=== PATIENT | male | born 1990 | race Two or more races ===

== ENCOUNTER 2020-05-24 00:45 | Emergency (ER) | payer SELFPAY ==
[2020-05-24 01:32] LABS: ABSOLUTE BASOPHILS # (AUTO) 0.1 10^3/uL (0.0-0.2); ABSOLUTE MONOCYTES (AUTO) 0.8 10^3/uL (0.1-1.4); ABSOLUTE NEUT (AUTO) 13.3 10^3/uL (1.7-8.2); BASOPHILS % (AUTO) 0.5 % (0-2); HEMATOCRIT 39.7 % (37.9-51.0); HEMOGLOBIN 13.7 g/dL (13.5-17.0); LYMPHOCYTES % (AUTO) 6.6 % (13-45); MEAN CORPUSCULAR HEMOGLOBIN 25.7 pg (27.0-33.4); MEAN CORPUSCULAR HGB CONC 34.6 g/dL (32.0-36.0); MEAN CORPUSCULAR VOLUME 74 fl (80-97); MONOCYTES % (AUTO) 5.4 % (3-13); PLATELET COUNT 449 10^3/uL (150-450); RED BLOOD COUNT 5.34 10^6/uL (4.35-5.55); RED CELL DISTRIBUTION WIDTH 14.6 % (11.5-14.0); SEGMENTED NEUTROPHILS % (AUTO) 87.5 % (42-78); TOTAL CELLS COUNTED % (AUTO) 100 %; WHITE BLOOD COUNT 15.2 10^3/uL (4.0-10.5)
[2020-05-24 01:35] LABS: ALBUMIN 5.3 g/dL (3.5-5.0); ALKALINE PHOSPHATASE 129 U/L (38-126); ANION GAP 13 (5-19); ASPARTATE AMINO TRANSFERASE 26 U/L (17-59); BILIRUBIN,DIRECT 0.3 mg/dL (0.0-0.4); BILIRUBIN,TOTAL 0.7 mg/dL (0.2-1.3); BLOOD UREA NITROGEN 15 mg/dL (7-20); CALCIUM 10.3 mg/dL (8.4-10.2); CARBON DIOXIDE 39 mmol/L (22-30); CHLORIDE 94 mmol/L (98-107); GLUCOSE 144 mg/dL (75-110)
[2020-05-24 01:56] LABS: POTASSIUM 2.8 mmol/L (3.6-5.0)
[2020-05-24] MEDS ORDERED: POTASSIUM CHLORIDE 10 MEQ TABLET.ER PO ONE (02:13)
[2020-05-24] MEDS ORDERED: ONDANSETRON HCL INJ/PF 4 MG/2 ML SDV IV ONE (02:14)
[2020-05-24] MEDS ORDERED: MAGNESIUM SULFATE/D5W 1 GM/100 ML RTUPB IV ONE (02:14)
--- NOTE | 2020-05-24 05:29 | ER Document Report ---
ED General <MELECIO GONZALEZ - Last Filed: 05/24/20 08:48> <MG CAMPBELL - Last Filed: 05/24/20 16:36> - General Chief Complaint: Nausea/Vomiting Stated Complaint: NAUSEA,VOMITING,ABDOMINAL PAIN Time Seen by Provider: 05/24/20 01:30 Primary Care Provider: [facility] [Outside] - Follow up as needed [facility] [Outside] - Follow up as needed FAMILIA COPELAND MD [COMMUNITY BASED STAFF] - Follow up as needed YESENIA MENDOZA MD [ACTIVE STAFF] - Follow up as needed - HPI Notes: Patient is a 29-year-old male who presents with nausea, and vomiting that began yesterday afternoon. Patient is visiting his from [facility]. He state he is coming off heroin and last used one day ago. He also left his xanax and percocet at home. He currently take xanax for anxiety and percocet for a neck fracture that occurred two months ago. Patient reports myalgia and dizziness. He denies chest pain, shortness of breath and fever. (CARLOSFERNANDOMELECIO M) - Related Data Allergies/Adverse Reactions: No Known Drug Allergies Allergy (Verified 05/24/20 04:21) Past Medical History - General Information source: Patient - Social History Smoking Status: Current Every Day Smoker Chew tobacco use (# tins/day): No Frequency of alcohol use: None Drug Abuse: Heroin, Prescription drugs <MELECIO GONZALEZ - Last Filed: 05/24/20 08:48> - General Information source: Patient - Social History Family History: Reviewed & Not Pertinent <MG CAMPBELL - Last Filed: 05/24/20 16:36> Review of Systems - Review of Systems Constitutional: No symptoms reported EENT: No symptoms reported Cardiovascular: No symptoms reported Respiratory: No symptoms reported Gastrointestinal: See HPI Genitourinary: No symptoms reported Male Genitourinary: No symptoms reported Musculoskeletal: No symptoms reported Skin: No symptoms reported Hematologic/Lymphatic: No symptoms reported Neurological/Psychological: See HPI <MELECIO GONZALEZ - Last Filed: 05/24/20 08:48> Physical Exam <MELECIO GONZALEZ - Last Filed: 05/24/20 08:48> - Vital signs Vitals: Temp 98.8 F 05/24/20 00:46 - Notes Notes: PHYSICAL EXAMINATION: VITALS: Vitals reviewed and within normal limits. GENERAL: Ill-appearing and diaphoretic. . HEAD: Atraumatic, normocephalic. EYES: Pupils equal, round, and reactive to light, extraocular movements intact, sclera anicteric, conjunctiva are normal. ENT: Nares patent. Moist mucous membranes. Oropharynx clear without exudates. NECK: Normal range of motion, supple without lymphadenopathy. LUNGS: Breath sounds clear to auscultation bilaterally and equal. No wheezes, rales, or rhonchi. HEART: Regular, rate, and rhythm without murmurs. ABDOMEN: Soft, nontender, normoactive bowel sounds. No guarding, no rebound. No masses appreciated. EXTREMITIES: Normal range of motion, no pitting or edema. No cyanosis. NEUROLOGICAL: No focal neurological deficits. Moves all extremities spontaneously and on command. PSYCH: Normal mood, normal affect. SKIN: Warm, Dry, normal turgor, no rashes or lesions noted. (MELECIO GONZALEZ) Course - Laboratory Results Result Diagrams: 05/24/20 01:10 05/24/20 01:10 Critical Laboratory Results Reviewed: Yes Attending or Supervising Physician who Reviewed Labs: LISA LEROY - Radiology Results Critical Radiology Results Reviewed: No Critical Results <MELECIO GONZALEZ - Last Filed: 05/24/20 08:48> - Laboratory Results Result Diagrams: 05/24/20 10:44 05/24/20 10:44 Critical Laboratory Results Reviewed: Yes <MG CAMPBELL - Last Filed: 05/24/20 16:36> - Re-evaluation Re-evalutation: Patient is a 29-year-old male who presents with nausea and vomiting. He reports coming off of heroin and last used 1 day ago. He also typically takes Xanax and Percocet daily but forgot them back in [place]. On exam, patient is diaphoretic but abdomen is soft and nontender. Based on patient's symptoms and presentation, I have a high clinical suspicion of withdrawal. CBC shows elevated WBC of 15.2. CMP shows low potassium of 2.8. 40 mEq KCl PO ordered. Lipase normal at 53.5. EKG shows prolonged QTC of 565. Will withhold any further Zofran or other medications that prolong QT. IM Phenergan ordered for nausea. 05/24/20 05:15 Informed by Aspen Johnson RN that patient was unable to tolerate PO KCl due to nausea and he refused to take it. Ordered KCl IV 40mEq. 05/24/20 07:37 I spoke with my supervising physician, Dr. Pfeiffer, concerning this patient. He agrees with my suspicions of withdrawal. He recommends proceeding with the potassium repletion and then discharging the patient with substance abuse resources. 05/24/20 08:00 patient handoff given to Mg Campbell NP. (MELECIO GONZALEZ) 05/24/20 15:19 CBC shows a leukocytosis of 15.2, CMP does show potassium 2.8, patient did receive 40 M EQ's of potassium. EKG did show a prolonged QTC of 565. Patient is receiving Phenergan for his nausea. Due to patient having leukocytosis, I did consider the patient may have been under some distress, I did repeat his CBC which did show a leukocytosis of 16.1. At this time I did order chest x-ray which was unremarkable, his urinalysis was unremarkable except for ketones and proteinuria. patient was having complaints of nausea/vomiting as well as having abdominal pain that had become progressively worse at 1330. at this time I did obtain a CT abdomen pelvis with IV contrast. CT results were unremarkable Patient was complaining he is having some tooth pain he thinks this may be why he has an elevation in his white blood cell count. Patient have is received IV fluids due to ketones shown in his urinalysis. Dr. Dung Hernandez, ER supervising physician, consulted regarding leukocytosis at 1519. He did go to bedside to see this patient reviewed plan of care. Patient will be discharged home on clindamycin for his toothache. Patient has been given a list of dentists to follow-up with within the next 24 to 48 hours. Patient also be given Phenergan 12.5 mg to take p.o. as needed for nausea and vomiting. 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 a list of resources have been given to him for his substance abuse, we did discuss that using IV heroin has negative impacts to him medically as well as psychologically. after performing a Medical Screening Examination, I estimate there is LOW risk for ACUTE APPENDICITIS, BOWEL OBSTRUCTION, ACUTE CHOLECYSTITIS, PERFORATED D IVERTICULITIS, INCARCERATED HERNIA, PANCREATITIS, TESTICULAR TORSION or PERFORATED ULCER, thus I consider the discharge disposition reasonable. Also, there is no evidence or peritonitis, sepsis, or toxicity. I have reevaluated this patient multiple times and no significant life threatening changes are noted. The patient and I have discussed the diagnosis and risks, and we agree with discharging home with close follow-up with the understanding that symptoms and presentations can change. We also discussed returning to the Emergency Department immediately if new or worsening symptoms occur. We have discussed the symptoms which are most concerning (e.g., bloody stool, fever, changing or worsening pain, intractable vomiting - standard verbal up date) that necessitate immediate return. 05/24/20 16:35 (MG CAMPBELL) - Vital Signs Vital signs: Temp Pulse Resp BP Pulse Ox 98.2 F 83 20 150/91 H 99 05/24/20 09:29 05/24/20 09:29 05/24/20 09:29 05/24/20 09:29 05/24/20 09:29 - Laboratory Results Laboratory Results Interpreted: 05/24/20 05/24/20 05/24/20 01:10 01:10 10:44 WBC 15.2 H 16.1 H Hgb 12.8 L MCV 74 L 75 L MCH 25.7 L 25.2 L RDW 14.6 H 14.6 H Lymph % (Auto) 6.6 L 8.2 L Absolute Neuts (auto) 13.3 H 13.5 H Seg Neutrophils % 87.5 H 83.7 H Sodium 145.9 H Potassium 2.8 L* Chloride 94 L Carbon Dioxide 39 H Glucose 144 H Calcium 10.3 H Alkaline Phosphatase 129 H Total Protein 9.0 H Albumin 5.3 H Urine Protein Urine Ketones 05/24/20 05/24/20 10:44 12:45 WBC Hgb MCV MCH RDW Lymph % (Auto) Absolute Neuts (auto) Seg Neutrophils % Sodium Potassium 3.2 L Chloride Carbon Dioxide Glucose Calcium Alkaline Phosphatase Total Protein Albumin Urine Protein >=500 H Urine Ketones 80 H - EKG Interpretation by Me Additional EKG results interpreted by me: Sinus rhythm with a rate of 79. Prolonged QTc of 565. Normal axis. No T wave inversions or ST segment changes in consecutive leads. (CARLOSFERNANDOMELECIO Tashia) Discharge <MELECIO GONZALEZ - Last Filed: 05/24/20 08:48> <MG CAMPBELL - Last Filed: 05/24/20 16:36> - Discharge Clinical Impression: Opioid withdrawal, Toothache Benzodiazepine withdrawal Qualifiers: Complication of substance-induced condition: uncomplicated Qualified Code(s): F13.230 - Sedative, hypnotic or anxiolytic dependence with withdrawal, uncomplicated Nausea & vomiting Qualifiers: Vomiting Intractability: unspecified Condition: Stable Disposition: HOME, SELF-CARE Instructions: Antinausea Medication ([facility]), Clindamycin ([facility]), Intravenous (IV) Fluids ([facility]), Vomiting ([facility]) Additional Instructions: Your x-ray, your CT of your abdomen, your urine were all normal today. You did have a little bit of a white count, and you are complaining of toothache, I will start you on outpatient antibiotic called clindamycin, you do need to take this every 6 hours until completion. Please make sure you take this with food. Please follow-up with a dentist within the next 24 to 48 hours. You did say that you do used IV heroin yesterday, it is advised to abstain from injecting yourself with illicit drugs. Return immediately for any new or worsening symptoms. Follow up with primary care provider, call tomorrow to make followup appointment. Prescriptions: Clindamycin HCl 300 mg PO Q6H #28 capsule Promethazine HCl [Phenergan 25 mg Tablet] 1 - 2 tab PO Q6H PRN #15 tablet PRN Reason: Referrals: FAMILIA COPELAND MD [COMMUNITY BASED STAFF] - Follow up as needed YESENIA MENDOZA MD [ACTIVE STAFF] - Follow up as needed [facility] [Outside] - Follow up as needed [facility] [Outside] - Follow up as needed
[2020-05-24] MEDS: POTASSI CL 20 MEQ/50 ML RIDER 20 MEQ/50 ML RTUPB IV SCH ×2 (05:37→07:40)
[2020-05-24] MEDS ORDERED: PROMETHAZINE HCL INJ 25 MG/1 ML VIAL IM ONE (05:45)
[2020-05-24] MEDS ORDERED: PROMETHAZINE HCL INJ 25 MG/1 ML VIAL IV ONE ×2 (08:40→13:31)
[2020-05-24 10:56] LABS: ABSOLUTE LYMPHOCYTES (AUTO) 1.3 10^3/uL (0.5-4.7); ABSOLUTE MONOCYTES (AUTO) 1.3 10^3/uL (0.1-1.4); ABSOLUTE NEUT (AUTO) 13.5 10^3/uL (1.7-8.2); BASOPHILS % (AUTO) 0.1 % (0-2); EOSINOPHILS % (AUTO) 0.1 % (0-6); HEMATOCRIT 38.1 % (37.9-51.0); HEMOGLOBIN 12.8 g/dL (13.5-17.0); LYMPHOCYTES % (AUTO) 8.2 % (13-45); MEAN CORPUSCULAR HEMOGLOBIN 25.2 pg (27.0-33.4); MEAN CORPUSCULAR HGB CONC 33.7 g/dL (32.0-36.0); MEAN CORPUSCULAR VOLUME 75 fl (80-97); MONOCYTES % (AUTO) 7.9 % (3-13); PLATELET COUNT 382 10^3/uL (150-450); RED BLOOD COUNT 5.09 10^6/uL (4.35-5.55); RED CELL DISTRIBUTION WIDTH 14.6 % (11.5-14.0); SEGMENTED NEUTROPHILS % (AUTO) 83.7 % (42-78); TOTAL CELLS COUNTED % (AUTO) 100 %; WHITE BLOOD COUNT 16.1 10^3/uL (4.0-10.5)
[2020-05-24] MEDS ORDERED: CEFTRIAXONE 1 GM/D5W RTU 1 GM/50 ML RTUPB IV ONE (13:05)
[2020-05-24 13:12] LABS: APPEARANCE,URINE CLEAR; BILIRUBIN,URINE NEGATIVE (NEGATIVE); COLOR,URINE YELLOW; GLUCOSE, URINE NEGATIVE (NEGATIVE); KETONES,URINE 80 mg/dL (NEGATIVE); LEUKOCYTE ESTERASE,URINE NEGATIVE (NEGATIVE); NITRITE,URINE NEGATIVE (NEGATIVE); PROTEIN,URINE >=500 mg/dL (NEGATIVE); URINE SPECIFIC GRAVITY 1.025; UROBILINOGEN,URINE NEGATIVE mg/dL (<2.0)
[2020-05-24] MEDS ORDERED: NORMAL SALINE 1000 ML 1,000 ML IV ONE (13:31)
--- NOTE | 2020-05-24 13:31 | RADIOLOGY REPORT (SQ) ---
EXAM DESCRIPTION: CHEST SINGLE VIEW IMAGES COMPLETED DATE/TIME: 05/24/2020 1:23 pm REASON FOR STUDY: elevated wbc COMPARISON: None. EXAM PARAMETERS: NUMBER OF VIEWS: One view. TECHNIQUE: Single frontal radiographic view of the chest acquired. RADIATION DOSE: NA LIMITATIONS: None. FINDINGS: LUNGS AND PLEURA: No opacities, masses or pneumothorax. No pleural effusion. MEDIASTINUM AND HILAR STRUCTURES: No masses. Contour normal. HEART AND VASCULAR STRUCTURES: Heart normal in size. Normal vasculature. BONES: No acute findings. HARDWARE: None in the chest. OTHER: No other significant finding. IMPRESSION: NO ACUTE RADIOGRAPHIC FINDING IN THE CHEST. TECHNICAL DOCUMENTATION: JOB ID: [id number] 2010 [employer]- All Rights Reserved Reading location - IP/workstation name: [email or web address]
--- NOTE | 2020-05-24 14:49 | RADIOLOGY REPORT (SQ) ---
EXAM DESCRIPTION: CT ABD/PELVIS WITH IV ONLY IMAGES COMPLETED DATE/TIME: 05/24/2020 2:31 pm REASON FOR STUDY: abd pain, n/v COMPARISON: None. TECHNIQUE: CT scan of the abdomen and pelvis performed using helical scanning technique with dynamic intravenous contrast injection. No oral contrast. Images reviewed with lung, soft tissue, and bone windows. Reconstructed coronal and sagittal MPR images reviewed. Delayed images for evaluation of the urinary system also acquired. All images stored on PACS. All CT scanners at this facility use dose modulation, iterative reconstruction, and/or weight based d osing when appropriate to reduce radiation dose to as low as reasonably achievable (ALARA). [facility]: Dose Right [facility]: CareDose [facility]: Dose Right [facility]: Teradose 4D [facility]: [employer] CONTRAST TYPE AND DOSE: contrast/concentration: Isovue 350.00 mmol/ml; Total Contrast Delivered: 66. 0 ml; Total Saline Delivered: 65.0 ml RENAL FUNCTION: None required. The patient is less than 50 years old. RADIATION DOSE: CT Rad equipment meets quality standard of care and radiation dose reduction techniq ues were employed. CTDIvol: 4.9 - 5.9 mGy. DLP: 580 mGy-cm.. LIMITATIONS: None. FINDINGS: LOWER CHEST: No significant findings. No nodules or infiltrates. LIVER: Normal size. No masses. No dilated ducts. SPLEEN: Normal size. No focal lesions. PANCREAS: No masses. No significant calcifications. No adjacent inflammation or peripancreatic fluid collections. Pancreatic duct not dilated. GALLBLADDER: No identified stones by CT criteria. No inflammatory changes to suggest cholecystitis. ADRENAL GLANDS: No significant masses or asymmetry. RIGHT KIDNEY AND URETER: No solid masses. No significant calcifications. No hydronephrosis or hyd roureter. LEFT KIDNEY AND URETER: No solid masses. No significant calcifications. No hydronephrosis or hydr oureter. AORTA AND VESSELS: No aneurysm. No dissection. Renal arteries, SMA, celiac without stenosis. RETROPERITONEUM: No retroperitoneal adenopathy, hemorrhage or masses. BOWEL AND PERITONEAL CAVITY: No masses or inflammatory changes. No free fluid or peritoneal masses. APPENDIX: Not clearly identified. No pericecal inflammatory change. PELVIS: No mass. No free fluid. Normal bladder. ABDOMINAL WALL: No masses. No hernias. BONES: No significant or acute findings. OTHER: No other significant finding. IMPRESSION: No evidence of acute intra-abdominal/pelvic process. TECHNICAL DOCUMENTATION: JOB ID: [id number] Quality ID # [id number]: Final reports with documentation of one or more dose reduction techniques (e.g., Au tomated exposure control, adjustment of the mA and/or kV according to patient size, use of iterative reconstruction technique) 2010 [employer]- All Rights Reserved Reading location - IP/workstation name: [email or web address]
[2020-05-24 16:26] LABS: URINE AMPHETAMINES SCREEN NEGATIVE; URINE BARBITURATES SCREEN NEGATIVE; URINE MARIJUANA (THC) SCREEN NEGATIVE; URINE METHADONE SCREEN NEGATIVE; URINE PHENCYCLIDINE SCREEN NEGATIVE
--- NOTE | 2020-05-24 16:30 | ER Document Report ---
Doctor's Note Notes: 05/24/20 16:29 This is a 29-year-old male heroin addict with withdrawal symptoms I was asked to see along with the midlevel provider. I have examined the patient and obtained supplemental history at bedside and also have reviewed all pertinent documentation in chart. Midlevel provider was concerned because of elevation of white count. I noticed that this man has a deeply decayed right second mandibular molar with surrounding erythema and tenderness of the gum tissue consistent with a periapical abscess. I think this is likely to be the source of white count elevation. I recommended outpatient treatment with clindamycin and referral to a dental provider. He can return here as needed for new or worsening symptoms. He is also provided appropriate resources regarding his opiate abuse. He is not suicidal or homicidal.
[2020-05-24 16:31] LABS: URINE BENZODIAZEPINES SCREEN UNCONFIRMED POSITIVE; URINE COCAINE SCREEN UNCONFIRMED POSITIVE
[2020-05-24 17:01] VITALS: BP 150/84
--- NOTE | 2020-05-24 19:36 | EKG REPORT ---
SEVERITY:- ABNORMAL ECG - SINUS RHYTHM PROBABLE LEFT ATRIAL ABNORMALITY BORDERLINE RIGHT AXIS DEVIATION MINIMAL ST DEPRESSION, INFERIOR LEADS PROLONGED QT INTERVAL : Confirmed by: Estelle Reid MD 24-May-2020 19:35:27
== END 2020-05-24 17:01 | disposition home or self-care (01) ==
LOC: ER 00:45
DX: F11.23 Opioid dependence with withdrawal (principal); F13.230 Sedative, hypnotic or anxiolytic dependence with withdrawal, uncomplicated; F41.9 Anxiety disorder, unspecified; T42.4X6A Underdosing of benzodiazepines, initial encounter; Z91.128 Patient's intentional underdosing of medication regimen for other reason; Z91.14 Patient's other noncompliance with medication regimen; R11.2 Nausea with vomiting, unspecified; R10.9 Unspecified abdominal pain; R61 Generalized hyperhidrosis; M79.10 Myalgia, unspecified site; R42 Dizziness and giddiness; K02.9 Dental caries, unspecified; K08.89 Other specified disorders of teeth and supporting structures; D72.829 Elevated white blood cell count, unspecified; R80.9 Proteinuria, unspecified; F17.200 Nicotine dependence, unspecified, uncomplicated; Z20.822 Contact with and (suspected) exposure to COVID-19
CPT/HCPCS: 93005; 96376; 99285; 96372; 96375; 96365; 96366; 96367; 36415; 87040; 83690; 84132; 85025; 87635; 80053; 81001; 80307; 71045; 74177; 93010; J3475; J2550; J2405; J3480; J7030; J0696; C9803